=== PATIENT | male | born 1990 | race Two or more races ===

== ENCOUNTER 2024-06-16 08:10 | Emergency (ER) | payer MEDICAID ==
[~2024-06-16] VITALS: Ht 172.7 cm; Wt 74.8 kg
[2024-06-16 08:15] VITALS: BP 135/78; TEMP 97.9
[2024-06-16] MEDS ORDERED: IBUP-1490 PO (08:24)
[2024-06-16] MEDS ORDERED: AMOX-430 PO (08:24)
[2024-06-16 08:33] VITALS: O2SAT 99
== END 2024-06-16 08:34 | disposition home or self-care (01) ==
LOC: ER 08:15
DX: H00.034 Abscess of left upper eyelid (principal); F17.200 Nicotine dependence, unspecified, uncomplicated